=== PATIENT | male | born 1945 | race Caucasian/White ===

== ENCOUNTER 2019-01-10 09:38 | Outpatient (CLI) | payer MEDICARE, OTHER ==
[2019-01-10] MEDS ORDERED: OMNIPAQUE 350 MG/ML, 75ML BOTTLE ONE (15:53)
== END 2019-01-10 23:59 | disposition home or self-care (01) ==
LOC: CFH 09:38
PROVIDERS: ATTEND Nurse Practitioner Family
DX: D17.0 Benign lipomatous neoplasm of skin and subcutaneous tissue of head, face and neck (principal); D49.2 Neoplasm of unspecified behavior of bone, soft tissue, and skin
CPT/HCPCS: 70487; Q9967